=== PATIENT | female | born 1950 | race Caucasian/White ===

== ENCOUNTER → 2018-03-31 | Outpatient (CLI) | payer OTHER | LOC: M WHC 09:06 | DX: Z01.419 Encounter for gynecological examination (general) (routine) without abnormal findings (principal); Z12.31 Encounter for screening mammogram for malignant neoplasm of breast (principal); Z80.0 Family history of malignant neoplasm of digestive organs; Z92.0 Personal history of contraception; Z12.12 Encounter for screening for malignant neoplasm of rectum; R92.8 Other abnormal and inconclusive findings on diagnostic imaging of breast | CPT/HCPCS: 77067 ==

== ENCOUNTER 2018-04-13 07:50 | Day surgery (SDC) | payer OTHER ==
[2018-04-13] MEDS: NS 1,000 ML IV (06:00)
[2018-04-13] MEDS ORDERED: PROPOFOL 200 MG/20 ML VIAL As Ordered ×2 (09:00→09:24)
[2018-04-13] MEDS ORDERED: LIDOCAINE 2% INJ 100 MG/5 ML SDV (FOR ANES.) As Ordered (09:12)
== END 2018-04-13 10:09 | disposition home or self-care (01) ==
LOC: M OPP 07:50
DX: Z12.11 Encounter for screening for malignant neoplasm of colon (principal); K64.0 First degree hemorrhoids; I10 Essential (primary) hypertension; E78.5 Hyperlipidemia, unspecified; M81.0 Age-related osteoporosis without current pathological fracture; M47.812 Spondylosis without myelopathy or radiculopathy, cervical region; Z86.010 Personal history of colon polyps; Z79.899 Other long term (current) drug therapy; Z80.0 Family history of malignant neoplasm of digestive organs; Z87.19 Personal history of other diseases of the digestive system; Z82.49 Family history of ischemic heart disease and other diseases of the circulatory system; Z91.040 Latex allergy status
CPT/HCPCS: G0105

== ENCOUNTER 2019-02-26 00:08 | Emergency (ER) | payer MEDICARE, OTHER ==
[~2019-02-26] VITALS: Ht 157.5 cm; Wt 59.3 kg
[~2019-02-26 00:08] MED LIST: ACET-683 PO; COZA25TA8 OR; KEFL250C OR; LOSARTAN/HCT PO; MULTCAP PO; VITA50005 PO
[2019-02-26 00:37] LABS: BASO # 0.1 10^3/uL (0.0-0.2); BASO % 1.2 % (0.0-1.0); EOS # 0.2 10^3/uL (0.0-0.5); EOS % 2.2 % (0.0-3.0); HEMATOCRIT 39.2 % (36.0-47.0); LYMPH # 3.7 10^3/uL (1.5-5.0); LYMPH % 47.2 % (24.0-44.0); MEAN CORPUSCULAR HEMOGLOBIN 29.7 pg (27.0-33.0); MEAN CORPUSCULAR HGB CONC 33.2 g/dl (32.0-36.5); MEAN CORPUSCULAR VOLUME 89.5 fl (80.0-96.0); MONO # 0.7 10^3/uL (0.0-0.8); NEUTROPHILS # 3.1 10^3/uL (1.5-8.5); NEUTROPHILS % 40.3 % (36.0-66.0); PLATELET COUNT, AUTOMATED 256 10^3/uL (150-450); RED BLOOD COUNT 4.38 10^6/uL (4.00-5.40); WHITE BLOOD COUNT 7.7 10^3/uL (4.0-10.0)
[2019-02-26 01:14] LABS: BLOOD UREA NITROGEN 15 MG/DL (7-18); CALCIUM LEVEL 8.7 MG/DL (8.8-10.2); CARBON DIOXIDE LEVEL 34 MEQ/L (21-32); CHLORIDE LEVEL 99 MEQ/L (98-107); CK-MB VALUE MASS 3.2 NG/ML (<3.6); CPK CREATINE PHOSPHOKINASE 321 U/L (26-192); GLOMERULAR FILTRATION RATE 58.7 (>45); GLUCOSE, FASTING 110 MG/DL (70-100); POTASSIUM SERUM 2.9 MEQ/L (3.5-5.1); SODIUM LEVEL 142 MEQ/L (136-145); TROPONIN I < 0.02 NG/ML (< 0.10)
[2019-02-26] MEDS ORDERED: POTASSIUM CHLORIDE 10 MEQ SR TABLET PO ONE (01:30)
[2019-02-26] MEDS ORDERED: FLEC50HA PO (02:05)
[2019-02-26] MEDS ORDERED: ASPI-255 PO (02:06)
[2019-02-26 02:15] VITALS: BP 172/94
[2019-02-26] MEDS ORDERED: FLECAINIDE 50MG TABLET PO ONE (02:15)
--- NOTE | 2019-02-26 02:22 | REP ---
Clinical: Chest pain . Comparison: 11/03/2015 . Findings: The mediastinum and cardiac silhouette are stable and within normal limits for portable technique. The lung ma are clear without acute consolidation, effusion, or pneumothorax. Skeletal structures are intact. Impression: No acute cardiopulmonary process appreciated. Electronically Signed by Vikash Osman MD 02/26/2019 02:15 A
--- NOTE | 2019-02-26 20:05 | ECGEPIP ---
[facility] [place] - ED Test Date: 2019-02-26 Pat Name: ANANT GANNON Department: Room: - Gender: Female Community Pharmacist: EDUARDO : 1950 Requested By: Bro Harrington Order Number: [id number] Reading MD: Bro Velasco Measurements Intervals [place] Rate: 89 P: 79 [place]: 168 QRS: 24 QRSD: 80 T: 76 QT: 404 QTc: 493 Interpretive Statements SINUS RHYTHM WITH FREQUENT SUPRAVENTRICULAR PREMATURE COMPLEXES MINIMAL ST DEPRESSION NO PRIORS FOR COMPARISON Electronically Signed on 02-26-2019 20:04:43 EDT by Bro Velasco
== END 2019-02-26 02:38 | disposition home or self-care (01) ==
LOC: M ED 00:08
DX: I48.0 Paroxysmal atrial fibrillation (principal); I10 Essential (primary) hypertension; E78.00 Pure hypercholesterolemia, unspecified; G47.30 Sleep apnea, unspecified; Z91.040 Latex allergy status; Z79.899 Other long term (current) drug therapy

== ENCOUNTER 2019-03-08 12:12 | Observation (INO) | payer MEDICARE, OTHER ==
[~2019-03-08] VITALS: Ht 157.5 cm; Wt 57.5 kg
[~2019-03-08 12:12] MED LIST changes: +ASPI-255 PO; +FLEC50HA PO
[2019-03-08 12:40] LABS: BASO # 0.1 10^3/uL (0.0-0.2); BASO % 0.8 % (0.0-1.0); EOS # 0.1 10^3/uL (0.0-0.5); EOS % 1.3 % (0.0-3.0); HEMATOCRIT 41.4 % (36.0-47.0); HEMOGLOBIN 13.6 g/dl (12.0-15.5); LYMPH # 2.1 10^3/uL (1.5-5.0); LYMPH % 33.2 % (24.0-44.0); MEAN CORPUSCULAR HEMOGLOBIN 29.8 pg (27.0-33.0); MEAN CORPUSCULAR HGB CONC 32.9 g/dl (32.0-36.5); MEAN CORPUSCULAR VOLUME 90.6 fl (80.0-96.0); MONO # 0.5 10^3/uL (0.0-0.8); MONO % 7.9 % (0.0-5.0); NEUTROPHILS # 3.6 10^3/uL (1.5-8.5); NEUTROPHILS % 56.6 % (36.0-66.0); PLATELET COUNT, AUTOMATED 263 10^3/uL (150-450); RED BLOOD COUNT 4.57 10^6/uL (4.00-5.40); WHITE BLOOD COUNT 6.3 10^3/uL (4.0-10.0)
[2019-03-08] MEDS ORDERED: ASPIRIN 81 MG CHEW TABLET PO ONE (13:00)
[2019-03-08 13:06] LABS: INR 1.06; PROTHROMBIN TIME 13.5 SECONDS (11.8-14.0)
[2019-03-08 13:07] LABS: PARTIAL THROMBOPLASTIN TIME 27.7 SECONDS (25.0-38.4)
[2019-03-08 13:17] LABS: BLOOD UREA NITROGEN 17 MG/DL (7-18); CARBON DIOXIDE LEVEL 29 MEQ/L (21-32); CHLORIDE LEVEL 100 MEQ/L (98-107); CK-MB VALUE MASS 2.2 NG/ML (<3.6); CPK CREATINE PHOSPHOKINASE 180 U/L (26-192); CREATININE FOR GFR 0.89 MG/DL (0.55-1.30); FREE T4 1.06 NG/DL (0.76-1.46); GLOMERULAR FILTRATION RATE > 60.0 (>45); GLUCOSE, FASTING 100 MG/DL (70-100); MAGNESIUM LEVEL 2.1 MG/DL (1.8-2.4); MB/CK RELATIVE INDEX 1.22 (< OR =4); PHOSPHORUS LEVEL 1.9 MG/DL (2.5-4.9); POTASSIUM SERUM 3.4 MEQ/L (3.5-5.1); SODIUM LEVEL 137 MEQ/L (136-145); THYROID STIMULATING HORMONE 0.599 uIU/ML (0.358-3.740); TROPONIN I < 0.02 NG/ML (< 0.10)
[2019-03-08] MEDS ORDERED: ISOVUE-370 76% 100ML VIAL (Q9967) As Ordered ONE (13:41)
--- NOTE | 2019-03-08 13:57 | REP ---
Bilateral lower extremity deep vein duplex ultrasound: The deep veins demonstrate normal compression, normal Doppler color flow and normal Doppler waveforms with respiration and augmentation from the popliteal veins to the common femoral veins bilaterally . Impression: There is no deep vein thrombus in the right or left lower extremity veins. Electronically Signed by Kameron Mayer MD 03/08/2019 01:49 P
[2019-03-08] MEDS ORDERED: NEUTRA-PHOS 1.5 GM PACKET PO ONE (14:00)
[2019-03-08] MEDS ORDERED: NS 500 ML IV ONE (14:00)
[2019-03-08] MEDS ORDERED: POTASSIUM CHLORIDE 10 MEQ SR TABLET PO ONE (14:00)
--- NOTE | 2019-03-08 14:00 | REP ---
CHEST, PORTABLE: AP portable view of the chest is performed and compared to a prior study of 02/26/2019. There are scattered fibrotic scarring bilaterally which appears stable. No definite superimposed acute infiltrate is seen. Mediastinal silhouette is unchanged. There are degenerative changes of the spine. IMPRESSION: Chronic scarring without evidence of superimposed acute infiltrate. Electronically Signed by Kameron Garza MD 03/08/2019 11:39 P
--- NOTE | 2019-03-08 14:47 | REP ---
CT pulmonary angiogram: With IV contrast. History: Chest pain and shortness of breath. Question pulmonary embolus. Comparison studies: Comparison chest CT without contrast January 28, 2013. Contrast dose: 75 mL of Isovue [address] technique: Helical scanning is acquired and overlapping 1.5 mm and contiguous 3 mm axial images are reformatted. In addition, maximum intensity projection and multiplanar re-formation images are generated in sagittal and coronal imaging projections. CT pulmonary angiographic findings: There is good opacification in the pulmonary arterial tree. There is no CT evidence of pulmonary embolism. Maximal intensity projection images show no evidence of vessel cutoff or filling defect. The thoracic aorta shows atherosclerotic calcification but there is no evidence of aneurysm or dissection. No pleural or pericardial effusion is appreciated. No hilar or mediastinal mass is appreciated. There are multiple low-density cysts in the liver, the largest of these being in the left lobe and measuring 4.1 cm in diameter. Unchanged from January 28, 2013 study. Lung window settings demonstrate multiple parenchymal opacities and nodular densities scattered in the lung ma bilaterally. There are patchy areas of nodular infiltrate in the right upper lobe, right lower lobe, and left lower lobe. The distribution is different than on the prior study but the pattern is similar. There are some stable subcentimeter nodules. In 2013 there were areas of more confluent consolidation in the right middle lobe and lingula which have resolved. There is a peribronchovascular tree in bud type infiltrate in the right lower lobe which is new. There are bronchiectatic changes in the posterior segment right upper lobe which are unchanged. Impression: No CT evidence of pulmonary embolus. Evidence of chronic bronchiectasis right upper lobe and patchy bilateral nodular infiltrates are noted. There is a new infiltrate in the right lower lobe. There are some old stable nodules. Question granulomatous or other chronic recurrent lung disease. Electronically Signed by Guille Berrios MD 03/08/2019 03:18 P
[2019-03-08] MEDS ORDERED: cefTRIAXone SOD 1 GM in D5W MINI-BAG PLUS 50 ML IV ONE (15:00)
[2019-03-08] MEDS ORDERED: FLEC50HA PO (15:42)
[2019-03-08] MEDS ORDERED: ASPI-525 PO (15:42)
[2019-03-08] MEDS ORDERED: LOSA100T5 PO (15:42)
[2019-03-08] MEDS ORDERED: AZITHROMYCIN INJ 500 MG, VIAL MATE ADAPTER 1 EACH in D5W 250 ML IV ONE (16:00)
--- NOTE | 2019-03-08 16:09 | HPEPDOC ---
General Date of Admission Date of Service: Mar 08, 2019 Primary Care Physician: Janene Bustamante MD Chief Complaint The patient is a 68-year-old female admitted with a reason for visit of Dizziness. Source: Patient Exam Limitations: No limitations Timing/Duration: 1-3 hours Severity: Mild Associated Symptoms: Dizziness History of Present Illness Patient is 68 years old female with past medical history of hypertension, hyperlipidemia presented hospital with bilateral chest pain. Patient stated that pain lasted less than 1 minute, 3 out of 10, no radiation, associated with dizziness. Patient denied fever, chills, nausea, vomiting, cough, shortness of breath, phlegm, diarrhea or dysuria. Also patient stated that she didn't have any palpitations. Of note patient was in the emergency on 02/26/19, she was diagnosed with atrial fibrillation and she received flecainide and aspirin for treatment. I reviewed EKG from 02/26/19, EKG showed sinus rhythm. On the admi ssion EKG was done and showed sinus rhythm, troponin is negative, no leukocytosis. CTA was done and it didn't show pulmonary emboli, positive for chronic bronchiectasis in right upper lobe and patchy bilateral nodular infiltrates. There is a new infiltrate in the right lower lobe. There are some old stable nodules. Question granulomatous or other chronic recurrent lung disease. Home Medications Scheduled Aspirin (Aspirin EC) 325 Mg Tablet.dr, 325 MG PO DAILY, (Reported) TAKES AROUND 1300 Ergocalciferol (Vitamin D2) (Vitamin D2) 50,000 Unit Cap, 50,000 UNITS PO QMONTH, (Reported) HAS NOT TAKEN YET THIS MONTH - ISN'T SURE IF SHE NEEDS IT. Flecainide Acetate (Flecainide Acetate) 50 Mg Tablet, 50 MG PO BID, (Reported) Losartan/Hydrochlorothiazide (Losartan-Hctz 100-25 mg Tab) 1 Each Tablet, 1 TAB PO DAILY, (Reported) Scheduled PRN Acetaminophen (Acetaminophen) 500 Mg Tab, 1,000 MG PO Q6H PRN for PAIN, (Reported) Allergies Coded Allergies: latex (Verified Allergy, Unknown, rash, 02/26/19) Past Medical History Medical History Hypertension, hyperlipidemia Family History Father from heart attack Mother from colon cancer Social History * Smoker: Denies Alcohol: Denies Drugs: denies A-FIB/CHADSVASC A-FIB History Current/History of A-Fib/PAF?: No Current PO Anticoag Therapy: No Review of Systems Constitutional: Denies: Chills, Fever Eyes: Denies: Pain, Vision change ENT: Denies: Head Aches, Ear Pain Skin: Denies: Rash, Lesions Pulmonary: Reports: Pleuritic Chest Pain; Denies: Cough Cardiovascular: Denies: Chest Pain, Palpitations Gastrointestinal: Denies: Nausea, Vomiting Genitourinary: Denies: Dysuria, Frequency Hematologic: Denies: Bruising Endocrine: Denies: Polydipsia, Polyphagia Musculoskeletal: Denies: Neck Pain, Back Pain Neurological: Denies: Weakness, Numbness Psych: Reports: Mood Normal Physical Examination General Exam: Positive: Alert, Cooperative Eye Exam: Positive: PERRLA, Conjunctiva & lids normal ENT Exam: Positive: Atraumatic, Mucous membr. moist/pink Neck Exam: Positive: Supple; Negative: JVD Chest Exam: Positive: Clear to auscultation, Normal air movement Heart Exam: Positive: Rate Normal, Regular Rhythm, Normal S1, Normal S2 Telemetry: Positive: No significant arrhythmia Abdomen Exam: Positive: Normal bowel sounds Extremity Exam: Negative: Clubbing, Cyanosis Skin Exam: Positive: Nl turgor and temperature Neuro Exam: Positive: Normal Gait Psych Exam: Positive: Mental status NL Vital Signs Vital Signs Date Time Temp Pulse Resp B/P (MAP) Pulse Ox O2 Delivery O2 Flow Rate FiO2 03/08/19 14:57 59 99 03/08/19 14:45 163/73 (103) 03/08/19 12:14 97.8 17 Room Air Laboratory Data Labs 24H Laboratory Tests 2 03/08/19 12:30: Immature Granulocyte % (Auto) 0.2, White Blood Count 6.3, Red Blood Count 4.57, Hemoglobin 13.6, Hematocrit 41.4, Mean Corpuscular Volume 90.6, Mean Corpuscular Hemoglobin 29.8, Mean Corpuscular Hemoglobin Concent 32.9, Red Cell Distribution Width 14.7H, Platelet Count 263, Neutrophils (%) (Auto) 56.6, Lymphocytes (%) (Auto) 33.2, Monocytes (%) (Auto) 7.9H, Eosinophils (%) (Auto) 1.3, Basophils (%) (Auto) 0.8, Neutrophils # (Auto) 3.6, Lymphocytes # (Auto) 2.1, Monocytes # (Auto) 0.5, Eosinophils # (Auto) 0.1, Basophils # (Auto) 0.1, Nucleated Red Blood Cells % (auto) 0.0, Prothrombin Time 13.5, Prothromb Time International Ratio 1.06, Activated Partial Thromboplast Time 27.7, Anion Gap 8, Glomerular Filtration Rate > 60.0, Blood Urea Nitrogen 17, Creatinine 0.89, Sodium Level 137, Potassium Level 3.4L, Chloride Level 100, Carbon Dioxide Level 29, Calcium Level 9.0, Phosphorus Level 1.9L, Total Creatine Kinase 180, Magnesium Level 2.1, Creatine Kinase MB 2.2, Creatine Kinase MB Relative Index 1.22, Troponin I < 0.02, Thyroid Stimulating Hormone (TSH) 0.599, Free Thyroxine 1.06 CBC/BMP Laboratory Tests 03/08/19 12:30 Red Blood Count 4.57, Mean Corpuscular Volume 90.6, Mean Corpuscular Hemoglobin 29.8, Mean Corpuscular Hemoglobin Concent 32.9, Red Cell Distribution Width 14.7 H, Neutrophils (%) (Auto) 56.6, Lymphocytes (%) (Auto) 33.2, Monocytes (%) (Auto) 7.9 H, Eosinophils (%) (Auto) 1.3, Basophils (%) (Auto) 0.8, Neutrophils # (Auto) 3.6, Lymphocytes # (Auto) 2.1, Monocytes # (Auto) 0.5, Eosinophils # (Auto) 0.1, Basophils # (Auto) 0.1, Calcium Level 9.0, Phosphorus Level 1.9 L, Total Creatine Kinase 180 Microbiology Microbiology 03/08/19 Blood Culture, Received Pending 03/08/19 Blood Culture, Received Pending Assessment/Plan Patient is 68 years old female with past medical history of hypertension, hyperlipidemia presented hospital with bilateral chest pain. Patient stated that pain lasted less than 1 minute, 3 out of 10, no radiation, associated with dizziness. Problems (1) Chest pain Status: Acute Problem Text: Unknown etiology, most likely pleuritic Workup for pulmonary emboli negative Troponin negative, EKG showed normal sinus rhythm CTA showed a new infiltrate in the right lower lobe, however patient does not have cough, no leukocytosis, she is afebrile. Antibiotics on hold Continue to monitor troponin Echo Appreciate/agree with sales account specialist consult There is discrepancy in medical information about atrial fibrillation. I reviewed her EKG from February 26, it showed normal sinus rhythm. Also, patient was not prescribed anticoagulation. Flecainide was initiated with aspirin 325mg. I defer decision to restart flecainide to sales account specialist. Plan / VTE VTE Prophylaxis Ordered?: Yes TERRY GUERIN DO Mar 08, 2019 16:09
[2019-03-08] MEDS ORDERED: LOSARTAN 50 MG TAB PO ONE (16:15)
[2019-03-08 17:20] VITALS: BP 132/68
[2019-03-08 17:40] LABS: CHOLESTEROL LEVEL 190 MG/DL (<200); CHOLESTEROL RISK RATIO 3.114 (<5); CK-MB VALUE MASS 1.7 NG/ML (<3.6); CPK CREATINE PHOSPHOKINASE 151 U/L (26-192); HDL CHOLESTEROL 61 MG/DL (>40); LDL CHOLESTEROL 102 MG/DL (<100); MB/CK RELATIVE INDEX 1.13 (< OR =4); NON-HDL-C 129 MG/DL; TRIGLYCERIDES LEVEL 134 MG/DL (<150); TROPONIN I < 0.02 NG/ML (< 0.10)
[2019-03-08] MEDS: HEPARIN SOD (PORCINE) 5000 UNITS/ML VIAL SC SCH (21:00)
[2019-03-08 22:00] VITALS: BP 130/82
[2019-03-08] MEDS ORDERED: ACETAMINOPHEN TAB 650MG DOSE (2X325MG) PO ONE (22:15)
--- NOTE | 2019-03-09 00:42 | ECGEPIP ---
[facility] - ED Test Date: 2019-03-08 Pat Name: ANANT GANNON Department: Room: - Gender: Female Lead Mobile Developer: ANTHONY : 1950 Requested By: Sandy Rodriguez Order Number: [id number] Reading MD: Amilcar Weems Measurements Intervals [place] Rate: 75 P: 51 TN: 141 QRS: 12 QRSD: 90 T: 54 QT: 353 QTc: 396 Interpretive Statements SINUS RHYTHM Nonspecific ST-T wave abnormalities subtly changed from tracing done 02-26-19 Baseline artifact Electronically Signed on 03-09-2019 0:42:26 EDT by Amilcar Weems
[2019-03-09 06:00] VITALS: BP 127/69
[2019-03-09 06:08] LABS: HEMOGLOBIN 12.6 g/dl (12.0-15.5); MEAN CORPUSCULAR HGB CONC 33.2 g/dl (32.0-36.5); MEAN CORPUSCULAR VOLUME 90.5 fl (80.0-96.0); PLATELET COUNT, AUTOMATED 228 10^3/uL (150-450); WHITE BLOOD COUNT 5.4 10^3/uL (4.0-10.0)
[2019-03-09 06:28] LABS: BLOOD UREA NITROGEN 19 MG/DL (7-18); CALCIUM LEVEL 8.7 MG/DL (8.8-10.2); CARBON DIOXIDE LEVEL 29 MEQ/L (21-32); CHLORIDE LEVEL 104 MEQ/L (98-107); GLOMERULAR FILTRATION RATE > 60.0 (>45); GLUCOSE, FASTING 81 MG/DL (70-100); MAGNESIUM LEVEL 2.2 MG/DL (1.8-2.4); POTASSIUM SERUM 3.7 MEQ/L (3.5-5.1); SODIUM LEVEL 139 MEQ/L (136-145)
[2019-03-09] MEDS ORDERED: POTASSIUM CHLORIDE 10 MEQ SR TABLET PO ONE (07:15)
--- NOTE | 2019-03-09 07:30 | ECHO ---
TWO-DIMENSIONAL ECHOCARDIOGRAM REPORT DATE: 03/08/2019 REFERRING PHYSICIAN: Dr. Pham INDICATION: Chest pain. HEIGHT: 158 cm. WEIGHT: 57 kg. DIMENSIONS: IVS 0.7 LV 4.5 LVPW 1.0 LA 3.3 Aorta 3.0 IVC 1.2 Mitral E wave velocity 60 A-wave 87 E prime septal 5.7 E prime lateral 7.7 FINDINGS: The study is of good technical quality. The patient is in sinus rhythm. Left ventricle is of normal size and systolic function with estimated EF 60-65%. Computer calculated LVEF was 62%. No segmental wall motion abnormalities are noted. Right ventricle is normal size and systolic function. Both atria appear normal. All four cardiac valves were reasonably well seen and appear normal. No pericardial effusion is noted. Inferior vena cava is normal size. Aortic root, aortic arch and visualized segment of abdominal aorta appear normal. Doppler interrogation reveals no aortic stenosis or insufficiency. There mild mitral and mild tricuspid insufficiency. Calculated pulmonary artery pressure is within normal limits. Mild pulmonic insufficiency is also noted. Mitral inflow pattern and tissue Doppler imaging of mitral annulus reveal grade 1 diastolic dysfunction. CONCLUSIONS: 1. Study is of good technical quality. 2. Normal LV size and systolic function, grade 1 diastolic dysfunction. 3. Mild mitral, tricuspid and pulmonic insufficiency. 4. Normal central venous pressure and likely normal pulmonary artery pressure. COMMENT: SBE prophylaxis is not recommended. Essentially normal echocardiogram for patient's age.
--- NOTE | 2019-03-09 08:29 | CR ---
DATE OF CONSULTATION: 03/08/2019 REFERRING PHYSICIAN: Dr. Pham INDICATION: Chest pain, dizziness. HISTORY OF PRESENT ILLNESS: Mrs. Simi Aparicio is previously unknown to me. She is a very pleasant 68-year-old female who follows on outpatient basis with Dr. Bustamante. Besides a history of hypertension and diverticulosis she has no significant chronic medical condition. She presented to our facility on February 26 with palpitations. She apparently was diagnosed with atrial fibrillation even though the ECG performed on particular day revealed sinus rhythm. I could not find any definite documentation of the atrial fibrillation in computer records. She was put on an aspirin and flecainide and discharged home. She was doing better in the following few days and her prior palpitations virtually completely resolved but then earlier today approximately 10 o'clock in the morning while at rest she started feeling extremely dizzy. The character to the dizziness seems to be consistent with vertigo. She said that the room was spinning around her. She also had very brief sensation of sharp chest discomfort that did not last more than about half a minute but because of principally dizziness she decided to come to emergency room. On the way to hospital she had additional episodes of chest discomfort but each one of them was very atypical both on the right and left side of her chest, it was not dull more sharp in nature and those bouts of the pain were very brief. After arrival to emergency room she was still symptomatic. She was found to be in sinus rhythm and while being monitored in the hospital her symptoms gradually resolved. An electrocardiogram revealed presence of sinus rhythm with minimal nonspecific repolarization abnormalities. She had a CT angiography of the chest that was negative for pulmonary embolism but she had evidence for bronchiectasis and old granulomatous disease with some new development compared to prior study in 2013. She also had negative lower extremity Doppler. When I saw her in the evening hours she was feeling better. She tells me that during the day she has not had any problems. She is particularly concerned that she received mixed messages from different physicians during her emergency room stay on the and then again the from the emergency room and the hospitalist service today. PAST MEDICAL HISTORY: 1. Hypertension longstanding. 2. Diverticulosis. 3. History of right upper lobe bronchiectasis and granulomatous abnormalities on the CTA. OUTPATIENT MEDICATIONS: - aspirin 325 a day - vitamin D - flecainide 50 mg twice a day - losartan/HCTZ 100/25 daily ALLERGIES: She has no known medication allergies other than LATEX. SOCIAL HISTORY: The patient is . She has two daughters. She lives with her . 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 She never smoked. There is minimal alcohol use. FAMILY HISTORY: Her father of heart attack but he was a smoker. Mother had colon cancer. REVIEW OF SYSTEMS: She denies any recent fever, chills, nausea, vomiting or diarrhea. She had intermittent very atypical chest discomfort as outlined in history of present illness. No dyspnea. No syncope or near syncope. Dizziness as per history of present illness. No peripheral edema. No bleeding problems. PHYSICAL EXAMINATION: Mrs. Aparicio is an elderly female who appears younger than her calendar age, very pleasant, alert and oriented appropriate. No distress. Last set of vital signs reveal blood pressure 132/68, heart rate has been in 50s and 60s, sinus rhythm. Afebrile. Saturation 98% on room air. Her fluid balance was not properly recorded. Weight is 57.5 kg. Her jugular venous pulse (JVP) is not elevated. There is no goiter. No cervical lymphadenopathy. Lungs are clear to auscultation. Heart exam reveals regular rhythm. I do not appreciate any gallop, rub or murmur. Abdomen is soft, nontender. No hepatosplenomegaly. Extremities are free of edema. She has good peripheral pulses and neurologically she is intact. LABORATORY DATA: She has normal CBC, normal basic metabolic panel, but for potassium 3.42, two sets of cardiac enzymes have been normal. Cholesterol is 190, HDL is 61, LDL 102 and triglycerides 134, TSH is 0.6 and INR is normal. ECG as per history of present illness. An echocardiogram performed today revealed preserved left ventricular systolic function with grade 1 diastolic dysfunction. No significant valvular disease, likely normal central venous pressure, normal pulmonary artery pressure. ASSESSMENT AND PLAN: Mrs. Aparicio is a 68-year-old female who has a longstanding history of hypertension who comes with a dominant complaint of dizziness and also atypical chest discomfort. Her ECG is of normal as are cardiac enzymes. I suspect that her dizziness is most likely side effect of flecainide it occurred only a few days after its initiation and has a character of vertigo which is known side effect of the medication. I agree with discontinuation of the medication. As far as the management of atrial fibrillation is concerned, I so far have not seen any evidence that she indeed had atrial fibrillation, we will see what her monitoring in the hospital will reveal but in my opinion without documented atrial fibrillation she should not be started on antiarrhythmics or full anticoagulation, we will try to get more records from ER, but if no documented atrial fibrillation is noted I would discharge her only on aspirin. She probably will need completion of evaluation on outpatient basis even though she is very active I would probably bring her for exercise stress test before deciding on management of potential arrhythmias. I will follow the patient with you.
[2019-03-09] MEDS ORDERED: ASPI81TAEC PO (08:30)
--- NOTE | 2019-03-09 08:39 | IPN ---
DATE: 03/09/2019 Mrs. Aparicio had relatively good night. She says she did not sleep much but it is was mostly because she was not comfortable with the environment, but she did not have any palpitations. She did not have any chest pain. She was able to ambulate without difficulty. Vital signs this morning reveal blood pressure 127/69, heart rate is in 60s. She is afebrile. She is alert, oriented and appropriate. Her jugular venous pressure is not high. Lungs are clear. Heart exam has regular rhythm without gallop, rub or murmur. Abdomen is soft with no edema. LABORATORY: Basic metabolic panel is normal, and CBC is also essentially normal. Her echocardiogram yesterday revealed preserved left ventricular systolic function. No significant valvular disease. I reviewed her telemetry monitoring, and she was slightly bradycardic during night time but did not have any arrhythmias. ASSESSMENT/PLAN: Mrs. Aparicio is a 68-year-old female who came with dominant complaint being dizziness and also very atypical chest discomfort. I suspect that the dizziness was related to flecainide. She seemed to be symptom free after the discontinuation. The more pressing issue is the question about her atrial fibrillation. She was discharged from our emergency room on February 26 with this diagnosis but I could not find any evidence for it based on available documentation. Consequently, I think she can be discharged without any anticoagulation and without any antiarrhythmics. I intend to follow her in the office within about 2 weeks. I told her to call my office in the interim if there should be any recurrent arrhythmias or palpitations. Finally, there is a question of hypertension control. Yesterday she had few readings that were relatively high, but for the most part the reading had been acceptable. She has been on the same antihypertensive medications for years. I suggested that she monitor blood pressure at home and brings a log of her readings to the office. Finally, the question of pneumonia. She clinically has been stable. There is nothing to indicate infection, and her changes are likely chronic. I discussed this plan with Dr. Pham.
--- NOTE | 2019-03-09 08:44 | DS.PDOC ---
Discharge Summary General Date of Admission Mar 08, 2019 at 12:13 Date of Discharge 03/09/19 Primary Care Physician: Janene Bustamante MD Attending Physician: TERRY GUERIN DO Discharge Summary PROCEDURES PERFORMED DURING STAY: None ADMITTING DIAGNOSES: 1. Chest pain Dizziness. DISCHARGE DIAGNOSES: 1.Chest pain Dizziness. COMPLICATIONS/CHIEF COMPLAINT: Chest Pain. HISTORY OF PRESENT ILLNESS: Patient is 68 years old female with past medical history of hypertension, diverticulosis, presented hospital with bilateral chest pain and dizziness. Initially,She presented to our facility on February 26 with palpitations. She apparently was diagnosed with atrial fibrillation even though the ECG performed on particular day revealed sinus rhythm. I could not find any definite documentation of the atrial fibrillation in computer records. She was put on an aspirin and flecainide and discharged home. She was doing better in the following few days and her prior palpitations virtually completely resolved but then earlier today approximately 10 o'clock in the morning while at rest she started feeling extremely dizzy. The character to the dizziness seems to be consistent with vertigo. She said that the room was spinning around her. She also had very brief sensation of sharp chest discomfort that did not last more than about half a minute but because of principally dizziness she decided to come to emergency room. On the way to hospital she had additional episodes of chest discomfort but each one of them was very atypical both on the right and left side of her chest, it was not dull more sharp in nature and those bouts of the pain were very brief. After arrival to emergency room she was still symptomatic. She was found to be in sinus rhythm and while being monitored in the hospital her symptoms gradually resolved. An electrocardiogram revealed presence of sinus rhythm with minimal nonspecific repolarization abnormalities. She had a CT angiography of the chest that was negative for pulmonary embolism but she had evidence for bronchiectasis and old granulomatous disease with some new development compared to prior study in 2013. She also had negative lower extremity Doppler. Her ECG is of normal as are cardiac enzymes. Most likely her dizziness side effect of flecainide it occurred only a few days after its initiation and has a character of vertigo which is known side effect of the medication HOSPITAL COURSE: Dr. Bruce consulted patient and recommended follow-up visit in 2 weeks. He recommended not to continue flecainide and anticoagulation, due to uncertainty of diagnosis of atrial fibrillation DISCHARGE MEDICATIONS: Please see below. ALLERGIES: Please see below. PHYSICAL EXAMINATION ON DISCHARGE: VITAL SIGNS: Please see below. General Exam: Positive: Alert, Cooperative Eye Exam: Positive: PERRLA, Conjunctiva & lids normal ENT Exam: Positive: Atraumatic, Mucous membr. moist/pink Neck Exam: Positive: Supple; Negative: JVD Chest Exam: Positive: Clear to auscultation, Normal air movement Heart Exam: Positive: Rate Normal, Regular Rhythm, Normal S1, Normal S2 Telemetry: Positive: No significant arrhythmia Abdomen Exam: Positive: Normal bowel sounds Extremity Exam: Negative: Clubbing, Cyanosis Skin Exam: Positive: Nl turgor and temperature Neuro Exam: Positive: Normal Gait Psych Exam: Positive: Mental status NL LABORATORY DATA: Please see below. IMAGING: CT pulmonary angiogram: With IV contrast. History: Chest pain and shortness of breath. Question pulmonary embolus. Comparison studies: Comparison chest CT without contrast January 28, 2013. Contrast dose: 75 mL of Isovue [address] technique: Helical scanning is acquired and overlapping 1.5 mm and contiguous 3 mm axial images are reformatted. In addition, maximum intensity projection and multiplanar re-formation images are generated in sagittal and coronal imaging projections. CT pulmonary angiographic findings: There is good opacification in the pulmonary arterial tree. There is no CT evidence of pulmonary embolism. Maximal intensity projection images show no evidence of vessel cutoff or filling defect. The thoracic aorta shows atherosclerotic calcification but there is no evidence of aneurysm or dissection. No pleural or pericardial effusion is appreciated. No hilar or mediastinal mass is appreciated. There are multiple low-density cysts in the liver, the largest of these being in the left lobe and measuring 4.1 cm in diameter. Unchanged from January 28, 2013 study. Lung window settings demonstrate multiple parenchymal opacities and nodular densities scattered in the lung ma bilaterally. There are patchy areas of nodular infiltrate in the right upper lobe, right lower lobe, and left lower lobe. The distribution is different than on the prior study but the pattern is similar. There are some stable subcentimeter nodules. In 2012 there were areas of more confluent consolidation in the right middle lobe and lingula which have resolved. There is a peribronchovascular tree in bud type infiltrate in the right lower lobe which is new. There are bronchiectatic changes in the posterior segment right upper lobe which are unchanged. Impression: No CT evidence of pulmonary embolus. Evidence of chronic bronchiectasis right upper lobe and patchy bilateral nodular infiltrates are noted. There is a new infiltrate in the right lower lobe. There are some old stable nodules. Question granulomatous or other chronic recurrent lung disease. PROGNOSIS: Favorable ACTIVITY: As tolerated DIET: Cardiac diet DISCHARGE PLAN: Home DISPOSITION: Home DISCHARGE INSTRUCTIONS: Continue taking aspirin 81 mg, stop flecainide ITEMS TO FOLLOWUP ON ON OUTPATIENT: Follow-up with Dr. Bruce in 2 weeks DISCHARGE CONDITION: Stable TIME SPENT ON DISCHARGE: Greater than 20 minutes. Vital Signs/I&Os Vital Signs Date Time Temp Pulse Resp B/P (MAP) Pulse Ox O2 Delivery O2 Flow Rate FiO2 03/09/19 06:00 98.4 61 18 127/69 (88) 98 03/08/19 12:14 Room Air I&O- Last 24 Hours up to 6 AM 03/09/19 06:00 Intake Total 1125 ml Output Total 0 ml Balance 1125 ml Laboratory Data Labs 24H Laboratory Tests 2 03/08/19 12:30: Immature Granulocyte % (Auto) 0.2, White Blood Count 6.3, Red Blood Count 4.57, Hemoglobin 13.6, Hematocrit 41.4, Mean Corpuscular Volume 90.6, Mean Corpuscular Hemoglobin 29.8, Mean Corpuscular Hemoglobin Concent 32.9, Red Cell Distribution Width 14.7H, Platelet Count 263, Neutrophils (%) (Auto) 56.6, Lymphocytes (%) (Auto) 33.2, Monocytes (%) (Auto) 7.9H, Eosinophils (%) (Auto) 1.3, Basophils (%) (Auto) 0.8, Neutrophils # (Auto) 3.6, Lymphocytes # (Auto) 2.1, Monocytes # (Auto) 0.5, Eosinophils # (Auto) 0.1, Basophils # (Auto) 0.1, Nucleated Red Blood Cells % (auto) 0.0, Prothrombin Time 13.5, Prothromb Time International Ratio 1.06, Activated Partial Thromboplast Time 27.7, Anion Gap 8, Glomerular Filtration Rate > 60.0, Blood Urea Nitrogen 17, Creatinine 0.89, Sodium Level 137, Potassium Level 3.4L, Chloride Level 100, Carbon Dioxide Level 29, Calcium Level 9.0, Phosphorus Level 1.9L, Total Creatine Kinase 180, Magnesium Level 2.1, Creatine Kinase MB 2.2, Creatine Kinase MB Relative Index 1.22, Troponin I < 0.02, Thyroid Stimulating Hormone (TSH) 0.599, Free Thyroxine 1.06 03/08/19 16:31: Total Creatine Kinase 151, Creatine Kinase MB 1.7, Creatine Kinase MB Relative Index 1.13, Troponin I < 0.02, Triglycerides Level 134, LDL Cholesterol 102H, Total Cholesterol 190, Non-HDL Cholesterol (LDL + VLDL) 129, Total HDL Cholesterol 61, Cholesterol/HDL Ratio 3.114 03/09/19 05:17: Nucleated Red Blood Cells % (auto) 0.0, Anion Gap 6L, Glomerular Filtration Rate > 60.0, Blood Urea Nitrogen 19H, Creatinine 0.70, Sodium Level 139, Potassium Level 3.7, Chloride Level 104, Carbon Dioxide Level 29, Calcium Level 8.7L, Magnesium Level 2.2 CBC/BMP Laboratory Tests 03/08/19 12:30 Red Blood Count 4.57, Mean Corpuscular Volume 90.6, Mean Corpuscular Hemoglobin 29.8, Mean Corpuscular Hemoglobin Concent 32.9, Red Cell Distribution Width 14.7 H, Neutrophils (%) (Auto) 56.6, Lymphocytes (%) (Auto) 33.2, Monocytes (%) (Auto) 7.9 H, Eosinophils (%) (Auto) 1.3, Basophils (%) (Auto) 0.8, Neutrophils # (Auto) 3.6, Lymphocytes # (Auto) 2.1, Monocytes # (Auto) 0.5, Eosinophils # (Auto) 0.1, Basophils # (Auto) 0.1, Calcium Level 9.0, Phosphorus Level 1.9 L, Total Creatine Kinase 180 03/09/19 05:17 Red Blood Count 4.20, Mean Corpuscular Volume 90.5, Mean Corpuscular Hemoglobin 30.0, Mean Corpuscular Hemoglobin Concent 33.2, Red Cell Distribution Width 15.0 H, Calcium Level 8.7 L Microbiology Microbiology 03/08/19 Blood Culture, Received Pending 03/08/19 Blood Culture, Received Pending Discharge Medications Scheduled Aspirin (Aspirin EC) 81 Mg Tablet.dr, 81 MG PO DAILY Ergocalciferol (Vitamin D2) (Vitamin D2) 50,000 Unit Cap, 50,000 UNITS PO QMO NTH, (Reported) HAS NOT TAKEN YET THIS MONTH - ISN'T SURE IF SHE NEEDS IT. Losartan/Hydrochlorothiazide (Losartan-Hctz 100-25 mg Tab) 1 Each Tablet, 1 TAB PO DAILY, (Reported) Scheduled PRN Acetaminophen (Acetaminophen) 500 Mg Tab, 1,000 MG PO Q6H PRN for PAIN, (Reported) Allergies Coded Allergies: latex (Verified Allergy, Unknown, rash, 02/26/19) TERRY GUERIN DO Mar 09, 2019 08:44
[2019-03-09] MEDS ORDERED: MAGNESIUM CHLORIDE 64 MG TABCR (SLO MAG) PO SCH (09:00)
[2019-03-09] MEDS: HEPARIN SOD (PORCINE) 5000 UNITS/ML VIAL SC SCH (09:00)
[2019-03-09] MEDS ORDERED: ASPIRIN 81 MG ENTERIC TAB PO SCH (09:00)
--- NOTE | 2019-03-10 08:22 | ECGEPIP ---
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
== END 2019-03-09 11:36 | disposition home or self-care (01) ==
LOC: M ED 12:12 → M ED INP 12:13 → M MSPAV 17:21
PROVIDERS: ADMIT Internal Medicine; ATTEND Internal Medicine
DX: R07.9 Chest pain, unspecified (principal); R42 Dizziness and giddiness; I10 Essential (primary) hypertension; E78.49 Other hyperlipidemia; Z79.82 Long term (current) use of aspirin; K57.90 Diverticulosis of intestine, part unspecified, without perforation or abscess without bleeding; Z79.899 Other long term (current) drug therapy; Z91.040 Latex allergy status
CPT/HCPCS: 36415; 71045; 71275; 80048; 80061; 82550; 82553; 83735; 84100; 84439; 84443; 84484; 85025; 85027; 85610; 85730; 87040; 93005; 93041; 93306; 93970; 94760; 96361; 96365; 96368; 99285; G0378; J0456; J0696; Q9967

== ENCOUNTER → 2019-05-18 | Outpatient (CLI) | payer MEDICARE ==
[~2019-05-18] MED LIST changes: +ASPI-525 PO; +ASPI81TAEC PO; +LOSA100T5 PO
--- NOTE | 2019-05-18 12:58 | REPMRS ---
Patient History The patient states she has not had a clinical breast exam in over a year. Family history of colorectal cancer at age 75 in mother. Took hormonal contraceptives for 2 years. Digital Woman Screen Mammo: May 18, 2019 - Exam #: [id number] Bilateral CC and MLO view(s) were taken. Technologist: Mili Hernandez, Technologist Prior study comparison: March 31, 2018, bilateral digital woman screen mammo performed at [facility]. November 28, 2015, digital woman screen mammo performed at [facility]. August 16, 2014, digital woman screen mammo performed at [facility]. FINDINGS: The breast tissue is heterogeneously dense. This may lower the sensitivity of mammography. There is a moderate amount of heterogeneously dense fibroglandular tissue which is fairly symmetric. There is no interval development of dominant mass, architectural distortion, or grouped microcalcification typical of malignancy. There has been no change in the appearance of the mammogram from the prior studies. 3-D tomosynthesis shows no additional findings. Assessment: BI-RADS/ACR category 1 mammogram. Negative Mammogram. Recommendation Routine screening mammogram of both breasts in 1 year (for women over age 40). This patient's Lifetime Breast Cancer RIsk is estimated at 3.9 %. This mammogram was interpreted with the aid of an FDA-approved computer-aided dectection system. Electronically Signed By: Matteo Berrios MD 05/18/19 [id number]
--- NOTE | 2019-05-25 08:07 | DEXA ---
AP SPINE L1 - L4 1.271 0.6 2.3 LT FEMUR TOTAL 0.888 -0.9 0.5 LT NECK 0.848 -1.4 0.3 RT FEMUR TOTAL 0.883 -1.0 0.4 RT NECK 0.835 -1.5 0.2 TOTAL BODY TOTAL OTHER COMMENTS: Normal bone densitometry of the spine. There is low bone density of the hips. The density of the spine has increased 12.8% since the initial exam on 08/06/2007. The spine density has increased 10.7% since the most recent exam on 01/22/2013. The density of the left hip has decreased 1.7% since the initial exam on 08/06/2007. The density of the left hip has increased 3.9% since the most recent exam on 01/22/2013. The density of the right hip has decreased 3.9% since the initial exam on 08/06/2007. The density of the right hip has increased 5.2% since the most recent exam on 01/22/2013. FOLLOW-UP: Recommendation for the next bone density exam: 2 years. MEKHI
== END ==
LOC: M WHC 10:27
PROVIDERS: ATTEND Family Medicine
DX: Z12.31 Encounter for screening mammogram for malignant neoplasm of breast (principal); M89.9 Disorder of bone, unspecified

== ENCOUNTER → 2020-06-21 | Outpatient (CLI) | payer MEDICARE ==
[~2020-06-21] MED LIST changes: -ASPI-525 PO; +ASPI325T48 PO
--- NOTE | 2020-06-21 09:56 | REPMRS ---
Patient History The patient states she has not had a clinical breast exam in over a year. Family history of colorectal cancer at age 75 in mother. Took hormonal contraceptives for 2 years. 3D TOMOSYNTHESIS WAS PERFORMED. The [facility] lifetime risk for breast cancer is 3.7%. Volpara breast density c. Digital Woman Screen Mammo: June 21, 2020 - Exam #: [id number] Bilateral CC and MLO view(s) were taken. Technologist: Celine Osorio, Technologist Prior study comparison: May 18, 2019, bilateral digital woman screen mammo performed at [facility]. March 31, 2018, bilateral digital woman screen mammo performed at [facility]. FINDINGS: The breast tissue is heterogeneously dense. This may lower the sensitivity of mammography. There has been no change in the appearance of the mammogram from the prior studies. There is a moderate amount of residual fibroglandular tissue which is fairly symmetric. There is no interval development of dominant mass, areas of architectural distortion, or clustered microcalcification typical of malignancy. Assessment: BI-RADS/ACR category 1 mammogram. Negative Mammogram. Recommendation Routine screening mammogram in 1 year (for women over age 40). This mammogram was interpreted with the aid of an FDA-approved computer-aided dectection system. Electronically Signed By: Kameron Garza MD 06/21/20 [id number]
== END ==
LOC: M WHC 08:48
PROVIDERS: ATTEND Family Medicine
DX: Z12.31 Encounter for screening mammogram for malignant neoplasm of breast (principal); Z80.0 Family history of malignant neoplasm of digestive organs; Z92.0 Personal history of contraception

== ENCOUNTER 2020-11-24 16:36 | Emergency (ER) | payer MEDICARE ==
[~2020-11-24] VITALS: Ht 157.5 cm; Wt 57.1 kg
[~2020-11-24 16:36] MED LIST changes: +ASPI-569 PO; -ASPI81TAEC PO
[2020-11-24] MEDS ORDERED: ATOR1TAB21 PO (16:46)
[2020-11-24] MEDS ORDERED: KETOROLAC 60MG 2ML VIAL IM ONE (17:50)
[2020-11-24] MEDS ORDERED: CYCLOBENZAPRINE 5MG TABLET PO ONE (17:50)
--- NOTE | 2020-11-24 17:53 | REP ---
INDICATION: pain and limited range of motion to right shoulder COMPARISON: None. TECHNIQUE: Internal rotation, external rotation, and Y view. FINDINGS: Mild cortical irregularity at the acromioclavicular joint noted. The glenohumeral joint is intact and normal. Subacromial space is normal. No periarticular calcifications or loose bodies. IMPRESSION: Minimal degenerative changes at the acromioclavicular joint. <Electronically signed by Vikash Osman > 11/24/20 [id number]
[2020-11-24] MEDS ORDERED: CYCL5TAB PO (18:32)
[2020-11-24] MEDS ORDERED: NAPR-885 PO (18:32)
[2020-11-24 18:45] VITALS: BP 165/76
== END 2020-11-24 18:48 | disposition home or self-care (01) ==
LOC: M ED 16:36
DX: M25.511 Pain in right shoulder (principal); I10 Essential (primary) hypertension; E78.5 Hyperlipidemia, unspecified; Z91.040 Latex allergy status; Z79.899 Other long term (current) drug therapy
CPT/HCPCS: 73030; 96372; 99284; J1885

== ENCOUNTER → 2020-12-19 | Outpatient (CLI) | payer MEDICARE ==
[~2020-12-19] MED LIST changes: +ATOR1TAB21 PO; +CYCL5TAB PO; +NAPR-885 PO
--- NOTE | 2020-12-19 16:40 | REP ---
INDICATION: RT SHOULDER IMPINGEMENT W/ PAIN ? RCT. COMPARISON: Radiographs 11/24/2020. TECHNIQUE: Coronal oblique T1, T2 fat sat, sagittal oblique T2 fat sat, axial T2 fat sat, gradient echo. FINDINGS: Rotator cuff: There is moderate tendinopathy of the supraspinatus, infraspinatus and subscapularis tendons. There is a full-thickness partial tear of the distal supraspinatus tendon. There are partial thickness tears of the infraspinatus and subscapularis tendons. Acromioclavicular joint: There are moderate hypertrophic degenerative changes of the acromioclavicular joint with a tiny amount of fluid in the joint. Acromion: Type 2 Biceps Tendon: In bicipital groove, no tenosynovitis. Hill Sach's deformity: None. Deltoid muscle: New Biceps labral complex: There is a tear at the base of the biceps labral complex. Labrum: There is diffuse SLAP tear. There is tear of the superior aspect of the posterior labrum. There is a tear of the inferior aspect of the anterior labrum. There is a tear of the posterior aspect of the inferior labrum. Cartilage: There is mild chondromalacia at the glenohumeral joint. Bone marrow: There is mild subcortical marrow edema in the superolateral humeral head, as well as in the distal end of the clavicle. Joint fluid: There is mild to moderate fluid in the subacromial/subdeltoid bursae. IMPRESSION: There is moderate tendinopathy of the supraspinatus, infraspinatus and subscapularis tendons. There is a full-thickness partial tear of the distal supraspinatus tendon. There are partial thickness tears of the infraspinatus and subscapularis tendons. Moderate hypertrophic degenerative changes acromioclavicular joint with a type 2 acromion. There is a tear of the base of the biceps labral complex. There is a diffuse SLAP tear. There tears of the anterior, posterior and inferior labrum. Mild to moderate fluid in the subacromial/subdeltoid bursae. <Electronically signed by Kameron Garza > 12/19/20 [id number]
== END ==
LOC: M PLAIMG 13:54
PROVIDERS: ATTEND Orthopaedic Surgery Sports Medicine
DX: M75.41 Impingement syndrome of right shoulder (principal)

== ENCOUNTER → 2021-04-02 | Outpatient (CLI) | payer MEDICARE ==
--- NOTE | 2021-04-02 11:12 | REP ---
INDICATION: RT KNEE PAIN. COMPARISON: None. TECHNIQUE: Five views right knee. FINDINGS: There is no acute fracture, dislocation or intrinsic bone disease. There is mild medial joint space narrowing and subchondral sclerosis, with tiny marginal spurs. There is mild lateral patellofemoral compartment narrowing. There appears to be a small suprapatellar effusion. IMPRESSION: Mild degenerative changes. Small joint effusion. <Electronically signed by Kameron Garza > 04/02/21 [id number]
== END ==
LOC: M SOG 08:06
PROVIDERS: ATTEND Orthopaedic Surgery Sports Medicine
DX: M25.561 Pain in right knee (principal); M17.11 Unilateral primary osteoarthritis, right knee

== ENCOUNTER → 2021-11-20 | Outpatient (CLI) | payer MEDICARE | LOC: M WHC 07:40 | PROVIDERS: ATTEND Nurse Practitioner | DX: Z13.820 Encounter for screening for osteoporosis (principal); Z12.31 Encounter for screening mammogram for malignant neoplasm of breast; M85.9 Disorder of bone density and structure, unspecified; Z78.0 Asymptomatic menopausal state; Z92.0 Personal history of contraception ==

== ENCOUNTER → 2022-08-12 | Outpatient (CLI) | payer MEDICARE | LOC: M RAD 11:13 | PROVIDERS: ATTEND Nurse Practitioner | DX: M25.551 Pain in right hip (principal); M25.511 Pain in right shoulder ==

== ENCOUNTER → 2022-11-01 | Outpatient (CLI) | payer MEDICARE ==
[2022-11-01 15:38] LABS: BLOOD UREA NITROGEN 16 MG/DL (9-23); CREATININE FOR GFR 0.92 MG/DL (0.55-1.30); GLOMERULAR FILTRATION RATE > 60.0 (>39)
== END ==
LOC: M LAB 13:41
PROVIDERS: ATTEND Orthopaedic Surgery
DX: M70.61 Trochanteric bursitis, right hip (principal)

== ENCOUNTER → 2022-11-04 | Outpatient (CLI) | payer MEDICARE ==
[~2022-11-04] MED LIST changes: +ISOVUE-300 61% 100ML VIAL ONE; +LIDOCAINE 1% MDV 20ML VIAL ONE; +PROHANCE 279.3MG/ML 5ML VIAL ONE
== END ==
LOC: M PLAIMG 12:04
PROVIDERS: ATTEND Orthopaedic Surgery
DX: M67.853 Other specified disorders of tendon, right hip (principal); M25.551 Pain in right hip
CPT/HCPCS: 27093; 73723; 76000; A9576; Q9967

== ENCOUNTER → 2022-12-09 | Outpatient (CLI) | payer MEDICARE ==
[~2022-12-09] MED LIST changes: -ISOVUE-300 61% 100ML VIAL ONE; -LIDOCAINE 1% MDV 20ML VIAL ONE; -PROHANCE 279.3MG/ML 5ML VIAL ONE
== END ==
LOC: M WHC 07:33
PROVIDERS: ATTEND Nurse Practitioner
DX: Z12.31 Encounter for screening mammogram for malignant neoplasm of breast (principal)

== ENCOUNTER → 2023-04-28 | Outpatient (CLI) | payer MEDICARE | LOC: M RAD 06:56 | PROVIDERS: ATTEND Nurse Practitioner Family | DX: R09.89 Other specified symptoms and signs involving the circulatory and respiratory systems (principal) ==

== ENCOUNTER 2023-11-03 11:03 | Day surgery (SDC) | payer MEDICARE ==
[~2023-11-03] VITALS: Ht 157.5 cm; Wt 54.9 kg
[~2023-11-03 11:03] MED LIST changes: +ASPI81CH33 PO; +B-12100010 PO; +VITA1CAP25 PO
[2023-11-03] MEDS: NS 1,000 ML IV ONE (11:40)
[2023-11-03] MEDS ORDERED: propofoL 200 MG/20 ML VIAL As Ordered ONE (12:29)
[2023-11-03] MEDS ORDERED: LIDOCAINE 2% 100MG/5ML SDV (FOR ANES.) As Ordered ONE (13:20)
[2023-11-03 13:45] VITALS: BP 156/71; TEMP 96.6; O2SAT 97
== END 2023-11-03 13:53 | disposition home or self-care (01) ==
LOC: M OPP 11:03
PROVIDERS: ATTEND Internal Medicine Gastroenterology
DX: Z86.010 Personal history of colon polyps (principal); D12.0 Benign neoplasm of cecum; K64.0 First degree hemorrhoids; K57.30 Diverticulosis of large intestine without perforation or abscess without bleeding; I48.91 Unspecified atrial fibrillation; Z79.02 Long term (current) use of antithrombotics/antiplatelets; Z79.82 Long term (current) use of aspirin; Z79.899 Other long term (current) drug therapy; Z91.040 Latex allergy status

== ENCOUNTER → 2023-12-12 | Outpatient (CLI) | payer MEDICARE | LOC: M WHC 07:08 | PROVIDERS: ATTEND Nurse Practitioner Family | DX: Z12.31 Encounter for screening mammogram for malignant neoplasm of breast (principal) ==

== ENCOUNTER → 2024-04-26 | Outpatient (CLI) | payer MEDICARE ==
[~2024-04-26] MED LIST changes: -CYCL5TAB PO; +CYCL5TAB4 PO
== END ==
LOC: M PLAIMG 09:16
PROVIDERS: ATTEND Nurse Practitioner Family
DX: M25.511 Pain in right shoulder (principal); M54.2 Cervicalgia

== ENCOUNTER 2024-05-29 20:22 | Emergency (ER) | payer MEDICARE ==
[~2024-05-29] VITALS: Ht 154.9 cm; Wt 61.1 kg
[2024-05-29 21:17] LABS: BASO # 0.1 10^3/uL (0.0-0.2); BASO % 1.3 % (0.0-1.0); EOS # 0.2 10^3/uL (0.0-0.5); EOS % 3.4 % (0.0-3.0); HEMATOCRIT 32.9 % (36.0-47.0); LYMPH # 2.7 10^3/uL (1.5-5.0); MEAN CORPUSCULAR HEMOGLOBIN 31.3 pg (27.0-33.0); MEAN CORPUSCULAR HGB CONC 33.4 g/dl (32.0-36.5); MEAN CORPUSCULAR VOLUME 93.7 fl (80.0-96.0); MONO # 0.6 10^3/uL (0.0-0.8); MONO % 9.1 % (2.0-8.0); NEUTROPHILS # 3.4 10^3/uL (1.5-8.5); NEUTROPHILS % 47.9 % (36.0-66.0); PLATELET COUNT, AUTOMATED 266 10^3/uL (150-450); RED BLOOD COUNT 3.51 10^6/uL (4.00-5.40)
[2024-05-29 21:37] LABS: CK-MB VALUE MASS 1.4 NG/ML (<3.6)
[2024-05-29 21:39] LABS: BLOOD UREA NITROGEN 16 MG/DL (9-23); CALCIUM LEVEL 9.3 MG/DL (8.3-10.6); CARBON DIOXIDE LEVEL 30 MMOL/L (20-31); CHLORIDE LEVEL 102 MMOL/L (98-107); CPK CREATINE PHOSPHOKINASE 140 U/L (34-145); CREATININE FOR GFR 0.74 MG/DL (0.55-1.30); GLOMERULAR FILTRATION RATE > 60.0 (>39); GLUCOSE, FASTING 98 MG/DL (74-106); MAGNESIUM LEVEL 1.6 MG/DL (1.8-2.4); POTASSIUM SERUM 3.4 MMOL/L (3.5-5.1); SODIUM LEVEL 141 MMOL/L (136-145)
[2024-05-29 21:41] LABS: THYROID STIMULATING HORMONE 2.001 uIU/ML (0.55-4.78)
[2024-05-30] MEDS: MECLIZINE 25 MG TABLET PO ONE (00:21)
[2024-05-30] MEDS ORDERED: AMOX500C PO (02:23)
[2024-05-30] MEDS ORDERED: CIPR7.5D2 AD (02:23)
[2024-05-30] MEDS: AMOXICILLIN 500 MG CAP PO ONE (03:04)
[2024-05-30] MEDS: CIPRODEX OTIC SUSP 7.5ML AD ONE (03:04)
[2024-05-30 03:08] VITALS: BP 175/71; TEMP 97.1; O2SAT 96
== END 2024-05-30 03:15 | disposition home or self-care (01) ==
LOC: M ED 20:22
DX: H81.4 Vertigo of central origin (principal); H60.93 Unspecified otitis externa, bilateral; E78.5 Hyperlipidemia, unspecified; I10 Essential (primary) hypertension; Z91.040 Latex allergy status; Z79.1 Long term (current) use of non-steroidal anti-inflammatories (NSAID); Z79.899 Other long term (current) drug therapy

== ENCOUNTER 2024-06-24 09:13 | Outpatient (RCR) | payer MEDICARE ==
[~2024-06-24 09:13] MED LIST changes: +AMOX500C PO; +CIPR7.5D2 AD
== END 2024-07-02 ==
LOC: M PT 09:13
PROVIDERS: ATTEND Nurse Practitioner Family
DX: M54.2 Cervicalgia (principal)

== ENCOUNTER 2024-07-06 09:04 | Outpatient (RCR) | payer MEDICARE | END 2024-07-30 | LOC: M PT 09:04 | PROVIDERS: ATTEND Nurse Practitioner Family | DX: M54.2 Cervicalgia (principal) ==

== ENCOUNTER → 2024-12-20 | Outpatient (CLI) | payer MEDICARE | LOC: M WHC 08:23 | PROVIDERS: ATTEND Nurse Practitioner Family | DX: Z12.31 Encounter for screening mammogram for malignant neoplasm of breast (principal) ==